=== PATIENT | male | born 1995 | race Caucasian/White ===

== ENCOUNTER → 2023-11-16 15:01 | Outpatient (BNVA) | payer OTHER, SELFPAY | PROVIDERS: PCP Nurse Practitioner; Visit Provider Nurse Practitioner | DX: R42 Dizziness and giddiness (principal); R00.0 Tachycardia, unspecified | CPT/HCPCS: 93005 ==

== ENCOUNTER → 2023-11-16 15:45 | Outpatient (BNVA) | payer OTHER, SELFPAY | PROVIDERS: PCP Nurse Practitioner; Visit Provider Nurse Practitioner | DX: R42 Dizziness and giddiness (principal); R00.0 Tachycardia, unspecified | CPT/HCPCS: 80053; 83735; 84443; 85025 ==